=== PATIENT | female | born 1950 | race Caucasian/White ===

== ENCOUNTER → 2016-07-21 | Outpatient (CLI) | payer MEDICARE ==
[~2016-07-21] MED LIST: ATOR10TA60 PO; CARV3.122 PO; LOSA25TA4 PO
--- NOTE | 2016-07-21 10:27 | CARD ---
APPROVED REPORT EXAM: Two-dimensional and M-mode echocardiogram with Doppler and color Doppler. Other Information Quality : Average Rhythm : NSR INDICATION Aortic Valve Disease 2D DIMENSIONS RVDd2.7 (2.9-3.5cm)Left Atrium(2D)3.5 (1.6-4.0cm) IVSd1.1 (0.7-1.1cm)Aortic Root(2D)3.3 (2.0-3.7cm) LVDd4.9 (3.9-5.9cm)PWd0.9 (0.7-1.1cm) LVDs3.9 (2.5-4.0cm)FS (%) 21.2 % SV48.2 mlLVEF(%)42.9 (>50%) Aortic Valve AoV Peak Lance.140.5cm/sAoV VTI25.3cm AO Peak GR.7.9mmHgAO Mean GR.4mmHg ELMER (VTI)2.69dk3RN P 1/2 Purs214rm Mitral Valve MV E Tjnfxvdm61.6cm/sMV E Peak Gr.7mmHg MV DECEL UPUL097nhDE A Btsorztu442.8cm/s MV E Mean Gr.3mmHgMV VLD51nw E/A Ratio0.5MV A Ylwxplzd957wo MVA (PHT)2.50cm2 Tricuspid Valve TR P. Bysmbzia071rd/sRAP OOXXKKSI7twVz TR Peak Gr.44hfKuMCVZ16rcLo LEFT VENTRICLE The left ventricle is normal size. There is normal left ventricular wall thickness. Left ventricle sy stolic function is low normal. The Ejection Fraction is 40-45%. There is mild global hypokinesis of t he left ventricle. RIGHT VENTRICLE The right ventricle is normal size. The right ventricular systolic function is normal. ATRIA The left atrium size is normal. The right atrium size is normal. The interatrial septum is intact wit h no evidence for an atrial septal defect or patent foramen ovale as noted on 2-D or Doppler imaging. AORTIC VALVE The aortic valve is normal in structure. The aortic valve is trileaflet. Doppler and Color Flow revea led eccentric moderate to severe aortic regurgitation. There is no significant aortic valvular stenos is. MITRAL VALVE The mitral valve is normal in structure and function. There is no mitral valve stenosis. Doppler and Color Flow revealed trace mitral regurgitation. TRICUSPID VALVE The tricuspid valve is normal in structure and function. Doppler and Color Flow revealed trace tricus pid regurgitation. The PA pressure was estimated at 25 mmHg. There is no tricuspid valve stenosis. PULMONIC VALVE The pulmonic valve is not well visualized. Doppler and Color Flow revealed no pulmonic valvular regur gitation. There is no pulmonic valvular stenosis. GREAT VESSELS The aortic root is normal in size. Normal pulmonary venous flow (Doppler). The IVC is normal in size and collapses >50% with inspiration. PERICARDIAL EFFUSION There is no evidence of significant pericardial effusion. Critical Notification Critical Value: No <Conclusion> Left ventricle systolic function is low normal. The Ejection Fraction is 40-45%. There is mild global hypokinesis of the left ventricle. Doppler and Color Flow revealed eccentric moderate to severe aortic regurgitation.
== END | disposition home or self-care (01) ==
LOC: ECHO 07:50
PROVIDERS: ATTEND Internal Medicine Cardiovascular Disease
DX: I35.1 Nonrheumatic aortic (valve) insufficiency (principal); I25.5 Ischemic cardiomyopathy; I35.8 Other nonrheumatic aortic valve disorders
CPT/HCPCS: 93306

== ENCOUNTER → 2017-03-05 | Outpatient (CLI) | payer MEDICARE ==
[~2017-03-05] MED LIST changes: +BUPIVACAINE MPF 0.25% 10 ML VIAL. ONE; +methylPREDNISolone ACETATE 40 MG/ML VIAL. ONE
== END | disposition home or self-care (01) ==
LOC: SURG 12:22
PROVIDERS: ATTEND Anesthesiology Pain Medicine
DX: M79.1 Myalgia (principal); I11.9 Hypertensive heart disease without heart failure; Z72.89 Other problems related to lifestyle; Z85.3 Personal history of malignant neoplasm of breast; Z90.710 Acquired absence of both cervix and uterus
CPT/HCPCS: 20553; J1030; J3490; G0260

== ENCOUNTER → 2017-10-19 | Outpatient (CLI) | payer MEDICARE ==
[~2017-10-19] MED LIST changes: -BUPIVACAINE MPF 0.25% 10 ML VIAL. ONE; -methylPREDNISolone ACETATE 40 MG/ML VIAL. ONE
--- NOTE | 2017-10-19 10:01 | CARD ---
MR#: [id number] Date of Study: 10/19/2017 Ordering Physician: RAGINI ROSARIO, Referring Physician: RAGINI ROSARIO, Tech: Wanda Villarreal LILIYA APPROVED REPORT EXAM: Two-dimensional and M-mode echocardiogram with Doppler and color Doppler. Other Information Quality : Good INDICATION Aortic Insufficiency 2D DIMENSIONS RVDd2.3 (2.9-3.5cm)Left Atrium(2D)3.9 (1.6-4.0cm) IVSd1.6 (0.7-1.1cm)Aortic Root(2D)3.0 (2.0-3.7cm) LVDd4.3 (3.9-5.9cm)LVOT Diameter2.0 (1.8-2.4cm) PWd1.3 (0.7-1.1cm)LVDs3.1 (2.5-4.0cm) FS (%) 28.2 %SV46.4 ml LVEF(%)54.0 (>50%) Aortic Valve AoV Peak Lance.148.1cm/sAoV VTI25.3cm AO Peak GR.8.8mmHgLVOT Peak Lance.114.5cm/s LVOT VTI 22.02cmAO Mean GR.5mmHg ELMER (VMAX)2.32cm1IXQ (VTI)2.85cm2 AI P 1/2 Ocpr936kh Mitral Valve MV E Slfzhcej08.3cm/sMV DECEL TWTQ740ne MV A Xysrnott474.9cm/sE/A Ratio0.6 Pulmonary Vein S1 Smyxhcau67.4cm/sD2 Bozbcbqm49.4cm/s LEFT VENTRICLE The left ventricle is normal size. There is mild concentric left ventricular hypertrophy. Left ventri toan systolic function is low normal. The Ejection Fraction is 50-55%. There is normal LV segmental wa ll motion. Transmitral Doppler flow pattern is Grade I-abnormal relaxation pattern. RIGHT VENTRICLE The right ventricle is normal size. The right ventricular systolic function is normal. ATRIA The left atrium size is normal. The right atrium size is normal. The interatrial septum is intact wit h no evidence for an atrial septal defect or patent foramen ovale as noted on 2-D or Doppler imaging. AORTIC VALVE The aortic valve is calcified but opens well. Doppler and Color Flow revealed moderate aortic regurgi tation. There is no significant aortic valvular stenosis. MITRAL VALVE The mitral valve is calcified but opens well. Mitral annular calcification is mild to moderate. There is no evidence of mitral valve prolapse. There is no mitral valve stenosis. Doppler and Color-flow r evealed trace to mild mitral regurgitation. TRICUSPID VALVE The tricuspid valve is normal in structure and function. Doppler and Color Flow revealed no tricuspid valve regurgitation noted. There is no tricuspid valve stenosis. PULMONIC VALVE The pulmonic valve is not well visualized. Doppler and Color Flow revealed trace pulmonic valvular re gurgitation. There is no pulmonic valvular stenosis. GREAT VESSELS The aortic root is normal in size. The ascending aorta is mildly dilated at 3.4 cm. The IVC is normal in size and collapses >50% with inspiration. PERICARDIAL EFFUSION There is no evidence of significant pericardial effusion. Critical Notification Critical Value: No <Conclusion> Left ventricle systolic function is low normal. The Ejection Fraction is 50-55%. There is normal LV segmental wall motion. Doppler and Color Flow revealed moderate aortic regurgitation. (PHT analysis suggestive of mild AI) The ascending aorta is mildly dilated at 3.4 cm. Signed by : Ragini Rosario, Electronically Approved : 10/19/2017 10:00:07
== END | disposition home or self-care (01) ==
LOC: ECHO 08:59
PROVIDERS: ATTEND Internal Medicine Cardiovascular Disease
DX: I35.1 Nonrheumatic aortic (valve) insufficiency (principal)
CPT/HCPCS: 93306

== ENCOUNTER → 2018-11-08 | Outpatient (CLI) | payer MEDICARE ==
[~2018-11-08] MED LIST changes: -CARV3.122 PO; +CARV3.1230 PO; +LOSA25TA11 PO; -LOSA25TA4 PO
--- NOTE | 2018-11-08 09:51 | CARD ---
MR#: [id number] Date of Study: 11/08/2018 Ordering Physician: RAGINI ROSARIO, Referring Physician: RAGINI ROSARIO, Tech: Anaya Hernandez LILIYA APPROVED REPORT EXAM: Two-dimensional and M-mode echocardiogram with Doppler and color Doppler. Other Information Quality : GoodHR: 72bpm Rhythm : NSR INDICATION Aortic Valve Disease 2D DIMENSIONS RVDd3.3 (2.9-3.5cm)Left Atrium(2D)3.5 (1.6-4.0cm) IVSd1.3 (0.7-1.1cm)Aortic Root(2D)3.0 (2.0-3.7cm) LVDd4.3 (3.9-5.9cm)LVOT Diameter2.1 (1.8-2.4cm) PWd1.1 (0.7-1.1cm)LVDs3.3 (2.5-4.0cm) FS (%) 24.6 %SV41.8 ml LVEF(%)49.0 (>50%) M-Mode DIMENSIONS Left Atrium(MM)3.04 (2.5-4.0cm)Aortic Root2.98 (2.2-3.7cm) Aortic Valve AoV Peak Lance.187.8cm/sAoV VTI34.2cm AO Peak GR.14.1mmHgLVOT Peak Lance.89.5cm/s LVOT VTI 21.68cmAO Mean GR.7mmHg ELMER (VMAX)1.16ok1UWT (VTI)2.13cm2 AI P 1/2 Coqv166rl Mitral Valve MV E Ektauexn55.0cm/sMV DECEL DRDO206km MV A Kdhwihoj348.3cm/sE/A Ratio0.5 Pulmonary Valve PV Peak Jeyaggim67.9cm/sPV Peak Grad.3mmHg Tricuspid Valve TR P. Ihtmdkus143ff/sRAP VUPYMBFX4hcMg TR Peak Gr.31pzAvJESL67aeAk LEFT VENTRICLE The left ventricle is normal size. There is mild concentric left ventricular hypertrophy. Left ventri toan systolic function is normal. The Ejection Fraction is 50-55%. Transmitral Doppler flow pattern is Grade I-abnormal relaxation pattern. RIGHT VENTRICLE The right ventricle is normal size. There is normal right ventricular wall thickness. The right ventr icular systolic function is normal. ATRIA The left atrium size is normal. The right atrium size is normal. The interatrial septum is intact wit h no evidence for an atrial septal defect or patent foramen ovale as noted on 2-D or Doppler imaging. AORTIC VALVE The aortic valve is thickened but opens well. The aortic valve is trileaflet. Doppler and Color Flow revealed mild aortic regurgitation. There is no significant aortic valvular stenosis. There is no aor tic valvular vegetation. MITRAL VALVE Mitral annular calcification is mild. There is no evidence of mitral valve prolapse. There is no mitr al valve stenosis. Doppler and Color-flow revealed trace mitral regurgitation. TRICUSPID VALVE The tricuspid valve is normal in structure and function. Doppler and Color Flow revealed trace tricus pid regurgitation. The PA pressure was estimated at 18 mmHg. There is no tricuspid valve prolapse or vegetation. There is no tricuspid valve stenosis. PULMONIC VALVE The pulmonary valve is normal in structure and function. Doppler and Color Flow revealed no pulmonic valvular regurgitation. There is no pulmonic valvular stenosis. GREAT VESSELS The aortic root is normal in size. The ascending aorta is Mildly dilated at 3.7cm. The IVC is normal in size and collapses >50% with inspiration. PERICARDIAL EFFUSION There is no evidence of significant pericardial effusion. Critical Notification Critical Value: No <Conclusion> Left ventricle systolic function is normal. The Ejection Fraction is 50-55%. Transmitral Doppler flow pattern is Grade I-abnormal relaxation pattern. Mild aortic regurgitation. Trace mitral regurgitation. Trace tricuspid regurgitation. The PA pressure was estimated at 18 mmHg. The ascending aorta is Mildly dilated at 3.7cm. There is no evidence of significant pericardial effusion. Signed by : Honorio Rodriguez, Electronically Approved : 11/08/2018 09:50:43
== END | disposition home or self-care (01) ==
LOC: ECHO 08:42
PROVIDERS: ATTEND Internal Medicine Cardiovascular Disease
DX: I08.0 Rheumatic disorders of both mitral and aortic valves (principal)
CPT/HCPCS: 93306

== ENCOUNTER → 2020-10-28 | Outpatient (CLI) | payer MEDICARE, OTHER ==
[~2020-10-28] MED LIST changes: +IOHEXOL 240 MG/ML 50ML VIAL. ONE; +IOHEXOL 300 MG/ML 75 ML VIAL. IV ONE
[2020-10-28 16:56] LABS: CREATININE 1.3 mg/dL (0.6-1.0); GFR 40.3
--- NOTE | 2020-10-29 08:10 | RAD ---
PQRS Compliance Statement: One or more of the following individualized dose reduction techniques were utilized for this examinat ion: 1. Automated exposure control 2. Adjustment of the mA and/or kV according to patient size 3. Use of iterative reconstruction technique CT abdomen/pelvis without contrast 10/28/2020 4:30 PM INDICATION: Abdominal pain COMPARISON: None available TECHNIQUE: Multiple axial CT images of the abdomen and pelvis were obtained without intravenous contr ast. Coronal and sagittal reformats are provided. FINDINGS: Subpleural wedge-shaped area of consolidation identified within the medial segment of the lobe measur ing up to 1.9 cm. Consideration may be given for subsegmental atelectasis versus scarring. Heart size is within normal limits. Coronary artery vascular calcifications are partially profiled. Evaluation of solid abdominal viscera is limited by lack of intravenous contrast. Focal hypoattenuation along th e fissure of ligamentum teres is suggestive of focal fatty infiltration. Cholecystectomy changes are present. Spleen, adrenal glands and pancreas are normal in appearance. Abdominal aorta is mildly tort uous, normal in caliber. No pathologically enlarged lymph nodes are identified. There is no free flui d or free intraperitoneal air. Moderate colonic diverticulosis. Oral contrast was administered. No as sociated inflammatory changes. Appendix is normal in appearance. There is mild eccentric wall thicken ing involving the cecum measuring up to 1.7 cm. Cortical hypodensities within the renal parenchyma measure up to 1.6 cm in the right and 1.17 on the left with fluid attenuation suggestive of simple cysts. No hydronephrosis. No calculi within the kidn eys, ureters or urinary bladder. Urinary bladder is within normal limits given degree of distention. No suspicious pelvic mass. No suspicious osseous abnormality is identified. Moderate lumbar spondylos is. 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 IMPRESSION: 1. Eccentric wall thickening involving the cecum is nonspecific and could be secondary to underdisten tion or fecal debris. Direct visualization could be of benefit to assess for underlying neoplastic ca uses. 2. No bowel obstruction or inflammation. 3. Wedge-shaped consolidative change in the medial segment right middle lobe suggestive of atelectasi s or infiltrate. Electronically signed by: Diana Lal MD (10/29/2020 8:07 AM) [facility]
== END ==
LOC: CT 16:09
PROVIDERS: ATTEND Family Medicine
DX: K57.30 Diverticulosis of large intestine without perforation or abscess without bleeding (principal); R14.0 Abdominal distension (gaseous); M47.816 Spondylosis without myelopathy or radiculopathy, lumbar region; I25.10 Atherosclerotic heart disease of native coronary artery without angina pectoris; Z90.49 Acquired absence of other specified parts of digestive tract
CPT/HCPCS: 36415; 74176; 82565; 84520

== ENCOUNTER → 2021-04-07 | Outpatient (CLI) | payer MEDICARE, OTHER ==
[~2021-04-07] MED LIST changes: -IOHEXOL 240 MG/ML 50ML VIAL. ONE; -IOHEXOL 300 MG/ML 75 ML VIAL. IV ONE
--- NOTE | 2021-04-08 08:18 | RAD ---
History: Reason: weight loss, anorexia, gastroesaphageal reflux disease / Spl. Instructions: / Histo ry: Procedure: The patient ate a standard meal containing 2.0 mCi Tc-99m sulfur colloid. Scintigraphic images of the abdomen were obtained. Counts were obtained. Findings: Retention percentages are as follows: 1 Hr: 60 2 Hr:39 3 Hr:20 4 Hr:7 Normal Retention Percentage Range is as Follows: 1 Hr: 35-91% 2 Hr: 2.7-60% 3 Hr: 0.5-28% 4 Hr: 0-10% Impression: Gastric emptying is within normal limits. Electronically signed by: Toby De La Rosa MD (04/08/2021 8:16 AM) [id number]
== END ==
LOC: NM 10:00
PROVIDERS: ATTEND Family Medicine
DX: K21.9 Gastro-esophageal reflux disease without esophagitis (principal); R63.4 Abnormal weight loss; R63.0 Anorexia
CPT/HCPCS: 78264; A9541